=== PATIENT | male | born 1975 | race Caucasian/White ===

== ENCOUNTER 2021-08-27 11:46 | Emergency (ER) | payer OTHER ==
[2021-08-27 12:03] VITALS: BP 126/73; BMI 29.5
[2021-08-27] MEDS ORDERED: SODIUM CHLORIDE 1,000 ML IV STA ×2 (12:16→15:02)
[2021-08-27] MEDS ORDERED: ACETAMINOPHEN 1000 MG/100 ML BAG IVPB ONE (12:16)
[2021-08-27] MEDS ORDERED: ONDANSETRON 4 MG/2 ML VIAL ONE (12:23)
[2021-08-27] MEDS ORDERED: ACETAMINOPHEN INJECTION 100 ML IVPB ONE (12:23)
[2021-08-27 12:34] LABS: BASO % 0.2 % (0-2.0); EOS % 0.2 % (0-4.5); HEMATOCRIT 44.8 % (35.4-49); HEMOGLOBIN 15.7 GM/dL (11.7-16.9); LYMPH % 5.6 % (8-40); MCH 29.8 pg (25.7-33.7); MCHC 34.9 g/dl (32.0-35.9); MEAN CELL VOLUME 85.2 fl (80-96); MEAN PLT VOLUME 7.9 fl (7.5-11.1); MONO % 6.1 % (3.8-10.2); NEUT % 87.9 % (42.8-82.8); PLATELET COUNT 244 10^3/uL (134-434); RBC 5.26 M/mm3 (4.00-5.60); WHITE BLOOD COUNT 10.8 K/mm3 (4.0-10.0)
[2021-08-27] MEDS ORDERED: ONDANSETRON 4 MG/2 ML VIAL IVPUSH ONE (12:53)
[2021-08-27] MEDS ORDERED: METOCLOPRAMIDE HCL INJECTION 10 MG/2 ML VIAL IM ONE (12:58)
[2021-08-27 13:00] LABS: ALBUMIN 4.2 g/dl (3.4-5.0); BLOOD UREA NITROGEN 20.5 mg/dL (7-18); CALCIUM 9.3 mg/dL (8.5-10.1)
[2021-08-27 13:03] LABS: CREATININE 0.9 mg/dL (0.55-1.3)
[2021-08-27 13:05] LABS: BILIRUBIN,TOTAL 1.8 mg/dL (0.2-1)
[2021-08-27] MEDS ORDERED: METOCLOPRAMIDE HCL INJECTION 10 MG/2 ML VIAL IVPUSH ONE (13:14)
[2021-08-27] MEDS ORDERED: FAMOTIDINE 20 MG/50 ML IVPB 20 MG/50 ML MG IVPB ONE ×2 (13:14→13:41)
[2021-08-27] MEDS ORDERED: METOCLOPRAMIDE HCL INJECTION 10 MG/2 ML VIAL ONE (13:40)
[2021-08-27 15:10] VITALS: PULSE 79; TEMP 98.4
== END 2021-08-27 15:25 | disposition home or self-care (01) ==
LOC: JCOVINFU 11:46
PROC: 3E033GC Introduction of Other Therapeutic Substance into Peripheral Vein, Percutaneous Approach (ICD-10-PCS; principal; 2021-08-27)
DX: A08.4 Viral intestinal infection, unspecified (principal)
CPT/HCPCS: 36415; 71046-TC-FY; 80053; 83690; 85025; 87804; 99284-25

== ENCOUNTER 2022-05-23 11:25 | Emergency (ER) | payer OTHER ==
[2022-05-23 11:41] VITALS: BP 159/93; PULSE 83; RESP 18; TEMP 98.2; BMI 34.2
[2022-05-23] MEDS ORDERED: IBUPROFEN 600 MG TABLET (FP) PO ONE ×2 (12:27→12:51)
[2022-05-23] MEDS ORDERED: ALBUTEROL SO4 HFA INHALER IH ONE ×2 (12:27→12:51)
== END 2022-05-23 12:52 | disposition home or self-care (01) ==
LOC: JER 11:25
DX: J20.9 Acute bronchitis, unspecified (principal)
CPT/HCPCS: 0241U-QW; 99283-25

== ENCOUNTER 2023-04-26 18:46 | Emergency (ER) | payer OTHER ==
[2023-04-26 19:05] VITALS: BP 145/65; PULSE 87; RESP 20; TEMP 98.1; BMI 33.4
[2023-04-26] MEDS ORDERED: CEPHALEXIN MONOHYDRATE 500 MG CAPSULE (UD) PO ONE (19:59)
[2023-04-26] MEDS ORDERED: DIPHTH,PERTUSS(ACELL),TET 0.5 ML DISP.SYRIN IM ONE ×2 (20:00→20:03)
[2023-04-26] MEDS ORDERED: CEPHALEXIN MONOHYDRATE 500 MG CAPSULE (UD) ONE (20:02)
== END 2023-04-26 20:16 | disposition home or self-care (01) ==
LOC: JERFT 18:46
PROC: 3E0234Z Introduction of Serum, Toxoid and Vaccine into Muscle, Percutaneous Approach (ICD-10-PCS; principal; 2023-04-26)
DX: S51.811A Laceration without foreign body of right forearm, initial encounter (principal); W26.8XXA Contact with other sharp object(s), not elsewhere classified, initial encounter; Y99.0 Civilian activity done for income or pay
CPT/HCPCS: 90715; 99283-25

== ENCOUNTER 2023-05-10 18:38 | Emergency (ER) | payer OTHER ==
[2023-05-10 18:43] VITALS: BP 163/86; PULSE 83; RESP 20; TEMP 98.2; BMI 29.0
== END 2023-05-10 19:58 | disposition home or self-care (01) ==
LOC: JERFT 18:38
DX: Z48.02 Encounter for removal of sutures (principal)
CPT/HCPCS: 99281-25